=== PATIENT | male | born 1980 | race African-American/Black ===

== ENCOUNTER 2023-04-13 11:39 | Emergency (ER) | payer MEDICARE, OTHER ==
[~2023-04-13] VITALS: Ht 175.3 cm; Wt 73.0 kg
[2023-04-13 11:43] VITALS: O2SAT 98
[2023-04-13] MEDS ORDERED: LEVOFLOXACIN 500MG PREMIX 100 ML IV ONE (12:30)
[2023-04-13] MEDS ORDERED: VANCOMYCIN 1G PREMIX 200 ML IV SCH (12:30)
[2023-04-13] MEDS ORDERED: HYDROCODONE/ACETAMINOPHEN 5/325MG TABLET PO ONE (14:00)
[2023-04-13] MEDS ORDERED: KETOROLAC 15MG/ML VIAL IV ONE (14:00)
[2023-04-13] MEDS ORDERED: SODIUM CHLORIDE 0.9% 1000ML BAG (SEPSIS BOLUS) IV ONE (14:15)
[2023-04-13] MEDS ORDERED: OXYCODONE HCL/ACETAMINOPHEN 5/325MG TABLET PO ONE (14:45)
[2023-04-13 15:17] LABS: BASOPHILS % 0.3 % (0.0-2.0); EOSINOPHILS % 1.3 % (0.0-5.0); HEMATOCRIT. 36.9 % (42.0-52.0); HEMOGLOBIN. 11.5 g/dL (14.0-18.0); LYMPHOCYTES % 12.3 % (20.0-50.0); MEAN CORPUSCULAR HEMOGLOBIN 20.5 pg (28.0-32.0); MEAN CORPUSCULAR HGB CONC 31.1 g/dL (31.0-37.0); MEAN CORPUSCULAR VOLUME 65.9 fL (80.0-94.0); NEUTROPHILS % 78.1 % (40.0-76.0); PLATELET 645 x1000/uL (130-400); RED BLOOD CELL COUNT 5.61 mill/uL (4.7-6.1); RED CELL DISTRIBUTION WIDTH 21.4 % (11.6-14.6); WHITE BLOOD COUNT 9.3 x1000/uL (4.5-11.0)
[2023-04-13 15:19] LABS: ADD RBC MORPHOLOGY YES; DIFFERENTIAL COMMENT 1
[2023-04-13 15:26] LABS: PROTHROMBIN TIME 11.1 sec (9.6-11.0)
[2023-04-13 15:39] LABS: ALANINE AMINOTRANSFERASE < 7 IU/L (10-49); ALBUMIN 3.9 g/dL (3.2-4.8); ASPARTATE AMINOTRANSFERASE 9 IU/L (<34); BILIRUBIN TOTAL 0.2 mg/dL (0.1-1.0); CARBON DIOXIDE 28 mEq/L (21-32); CHLORIDE 104 mEq/L (98-107); CREATININE 0.6 mg/dL (0.6-1.3); GLUCOSE 81 mg/dL (70-105); POTASSIUM 4.6 mEq/L (3.5-5.1); PROTEIN TOTAL 8.2 g/dL (6.0-8.3); SODIUM 137 mEq/L (136-145); UREA NITROGEN BLOOD 11 mg/dL (9-23)
[2023-04-13 15:56] LABS: ANISOCYTOSIS 3+; HYPOCHROMASIA 1+; MICROCYTOSIS 3+; PLATELET ESTIMATE INCREASED
[2023-04-13] MEDS ORDERED: MUPI15CR11 TP (17:39)
[2023-04-13] MEDS ORDERED: DICL500C MT (17:39)
[2023-04-13] MEDS ORDERED: LEVOFLOXACIN 500MG PREMIX 100 ML IV NR (18:45)
[2023-04-13 22:59] VITALS: BP 118/79; PULSE 83; RESP 18; TEMP 98.4
== END 2023-04-13 23:06 | disposition home or self-care (01) ==
LOC: ER 11:51
DX: K62.89 Other specified diseases of anus and rectum (principal)
CPT/HCPCS: 99285; 96365; 71045; 96367; 96366; 80053; 83605; 85025; 85610; 87040; 36415; 84145; J1956; J3370; J7030